=== PATIENT | male | born 1975 | race Two or more races ===

== ENCOUNTER 2018-04-19 20:01 | Emergency (ER) | payer OTHER ==
[~2018-04-19] VITALS: Ht 175.3 cm; Wt 95.3 kg
[~2018-04-19 20:01] MED LIST: TOPROL XL25 MG
[2018-04-19] MEDS ORDERED: HYDROCHLOROTHIA25 MG (20:25)
[2018-04-19] MEDS ORDERED: AVAPRO150 MG (20:25)
== END 2018-04-20 00:45 | disposition home or self-care (01) ==
LOC: ER 20:01
DX: M77.52 Other enthesopathy of left foot and ankle (principal); M10.9 Gout, unspecified

== ENCOUNTER 2018-05-15 12:18 | Emergency (ER) | payer OTHER ==
[~2018-05-15] VITALS: Ht 175.3 cm; Wt 95.3 kg
[~2018-05-15 12:18] MED LIST changes: +AVAPRO150 MG; +HYDROCHLOROTHIA25 MG
== END 2018-05-15 18:21 | disposition home or self-care (01) ==
LOC: ER 12:18
DX: S80.02XA Contusion of left knee, initial encounter (principal); W22.8XXA Striking against or struck by other objects, initial encounter; Y93.89 Activity, other specified; Y92.89 Other specified places as the place of occurrence of the external cause; Y99.8 Other external cause status

== ENCOUNTER 2021-02-19 13:57 | Emergency (ER) | payer OTHER ==
[~2021-02-19] VITALS: Ht 175.3 cm; Wt 101.2 kg
[2021-02-19] MEDS ORDERED: TOPROL XL25 M1 PO (14:35)
[2021-02-19] MEDS ORDERED: LIPITOR20 MG (14:35)
[2021-02-19] MEDS ORDERED: NORFLEX100MG PO (15:39)
[2021-02-19] MEDS ORDERED: KETO10TA2 PO (15:39)
== END 2021-02-19 15:45 | disposition home or self-care (01) ==
LOC: ER 13:57
DX: M25.561 Pain in right knee (principal); I10 Essential (primary) hypertension

== ENCOUNTER 2022-09-03 15:01 | Emergency (ER) | payer OTHER ==
[~2022-09-03] VITALS: Ht 177.8 cm; Wt 101.6 kg
[~2022-09-03 15:01] MED LIST changes: +KETO10TA2 PO; +LIPITOR20 MG; +NORFLEX100MG PO; +TOPROL XL25 M1 PO
== END 2022-09-03 17:35 | disposition home or self-care (01) ==
LOC: ER 15:01
DX: M79.675 Pain in left toe(s) (principal)

== ENCOUNTER 2023-02-22 17:52 | Emergency (ER) | payer OTHER ==
[~2023-02-22] VITALS: Ht 175.3 cm; Wt 81.6 kg
[2023-02-22] MEDS ORDERED: CLEOCIN HCL300 MG PO (19:16)
== END 2023-02-22 19:35 ==
LOC: ER 17:52
DX: L73.8 Other specified follicular disorders (principal)

== ENCOUNTER 2024-11-19 22:35 | Emergency (ER) | payer OTHER ==
[~2024-11-19] VITALS: Ht 167.6 cm; Wt 81.6 kg
[~2024-11-19 22:35] MED LIST changes: +CLEOCIN HCL300 MG PO
[2024-11-19] MEDS ORDERED: VALSARTAN-HCTZ1 EAC3 (23:22)
[2024-11-20] MEDS ORDERED: KETOROLAC TROMETHAMINE 10 MG TABLET PO STA (02:06)
[2024-11-20] MEDS ORDERED: TRIAMCINOLONE ACETONIDE 40 MG/ML VIAL IM STA (02:06)
[2024-11-20] MEDS ORDERED: NABUMETONE750 MG PO (04:37)
== END 2024-11-20 04:56 ==
LOC: ER 22:59
DX: M25.641 Stiffness of right hand, not elsewhere classified (principal); R22.41 Localized swelling, mass and lump, right lower limb; I10 Essential (primary) hypertension